=== PATIENT | female | born 1965 | race Two or more races ===

== ENCOUNTER 2022-07-05 04:50 | Day surgery (SDC) | payer OTHER ==
[~2022-07-05] VITALS: Ht 160 cm; Wt 81.6 kg
[~2022-07-05 04:50] MED LIST: DIOVAN HCT 1601 EACH PO; PEPCI PO; PROTONIX40 MG PO; SYNTHROID50 MCG PO
== END 2022-07-05 11:00 | disposition home or self-care (01) ==
LOC: CIR.AMB 04:50
PROVIDERS: ATTEND Specialist
DX: K80.10 Calculus of gallbladder with chronic cholecystitis without obstruction (principal); I10 Essential (primary) hypertension; Z20.822 Contact with and (suspected) exposure to COVID-19; E03.9 Hypothyroidism, unspecified; Z11.52 Encounter for screening for COVID-19; Z88.0 Allergy status to penicillin